=== PATIENT | female | born 1995 | race Caucasian/White ===

== ENCOUNTER 2020-07-17 08:31 | Emergency (ER) | payer OTHER ==
[2020-07-17 10:18] LABS: APPEARANCE,URINE CLEAR; BILIRUBIN,URINE NEGATIVE (NEGATIVE); COLOR,URINE YELLOW; GLUCOSE, URINE NEGATIVE (NEGATIVE); KETONES,URINE NEGATIVE (NEGATIVE); LEUKOCYTE ESTERASE,URINE MODERATE (NEGATIVE); NITRITE,URINE NEGATIVE (NEGATIVE); PROTEIN,URINE 30 mg/dL (NEGATIVE); URINE SPECIFIC GRAVITY 1.023; UROBILINOGEN,URINE NEGATIVE mg/dL (<2.0)
--- NOTE | 2020-07-17 10:20 | ER Document Report ---
HPI - HPI Patient complains to provider of: Urinary symptoms Time Seen by Provider: 07/17/20 10:11 Onset/Duration: Worse Pain Level: 1 Context: Patient presents with a 3-day history of dysuria and urinary frequency. Patient complains of possible hematuria. Patient states that she has not had any vaginal bleeding or discharge but feels as though something is trying to come out of her vagina. Associated Symptoms: denies: Fever, Nausea, Vomiting Exacerbated by: Denies Relieved by: Denies Similar symptoms previously: No Recently seen / treated by doctor: No - ROS ROS below otherwise negative: Yes Systems Reviewed and Negative: Yes All other systems reviewed and negative - CONSTITUTIONAL Constitutional: DENIES: Fever - GASTROINTESTINAL Gastrointestinal: REPORTS: Abdominal Pain - URINARY Urinary: REPORTS: Dysuria, Frequency - REPRODUCTIVE LMP: 07/04/20 Reproductive: DENIES: : - DERM Skin Color: Normal Skin Problems: None Past Medical History - General Information source: Patient - Social History Smoking Status: Never Smoker Chew tobacco use (# tins/day): No Frequency of alcohol use: None Drug Abuse: None Occupation: None Family History: Reviewed & Not Pertinent Patient has homicidal ideation: No Endocrine Medical History: Reports: Hx Hypothyroidism Surgical Hx: Negative - Immunizations Hx Diphtheria, Pertussis, Tetanus Vaccination: Yes Vertical Provider Document - CONSTITUTIONAL Agree With Documented VS: Yes Exam Limitations: No Limitations General Appearance: WD/WN, No Apparent Distress - HEENT HEENT: Atraumatic, Normocephalic - NECK Neck: Normal Inspection, Supple - RESPIRATORY Respiratory: Breath Sounds Normal, No Respiratory Distress - CARDIOVASCULAR Cardiovascular: Regular Rate, Regular Rhythm, No Murmur - GI/ABDOMEN Gastrointestinal: Abdomen Soft, Abdomen Non-Tender, No Organomegaly, Normal Bowel Sounds - REPRODUCTIVE Female Genitalia: Abnormal Inspection - Positive vaginal discharge - BACK Back: Normal Inspection. negative: CVA Tenderness-Right, CVA Tenderness-Left - MUSCULOSKELETAL/EXTREMETIES Musculoskeletal/Extremeties: ISAIAH ONEAL - NEURO Level of Consciousness: Awake, Alert, Appropriate Motor/Sensory: No Motor Deficit - DERM Integumentary: Warm, Dry, No Rash Course - Re-evaluation Re-evalutation: 07/17/20 Patient with findings worrisome for UTI, no concern for pylonephritis or obstructive uropathy at this time. Patient also with positive gonorrhea. Patient advised that partner will need to be treated. Patient nontoxic in appearance, will plan for discharge at this time. - Vital Signs Vital signs: Temp Pulse Resp BP Pulse Ox 98.3 F 71 16 131/81 H 100 07/17/20 08:35 07/17/20 08:35 07/17/20 08:35 07/17/20 08:35 07/17/20 08:35 - Laboratory Laboratory results interpreted by me: 07/17/20 18:42 Labs- All tests 24 hr 07/17/20 07/17/20 07/17/20 08:47 08:47 08:57 Urine Color YELLOW Urine Appearance CLEAR Urine pH 6.0 Ur Specific [place] 1.023 Urine Protein 30 H Urine Glucose (UA) NEGATIVE Urine Ketones NEGATIVE Urine Blood MODERATE H Urine Nitrite NEGATIVE Urine Bilirubin NEGATIVE Urine Urobilinogen NEGATIVE Ur Leukocyte Esterase MODERATE H Urine WBC (Auto) 47 Urine RBC (Auto) 91 Urine Bacteria (Auto) TRACE Squamous Epi Cells Auto 1 Urine Mucus (Auto) RARE Urine Ascorbic Acid NEGATIVE Urine HCG, Qual NEGATIVE Bacteria (Wet Prep) Trichomonas (Wet Prep) Vaginal WBC Vaginal RBC Vaginal Yeast Chlamydia DNA (PCR) NOT DETECTED N.gonorrhoeae DNA (PCR) DETECTED H 07/17/20 11:36 Urine Color Urine Appearance Urine pH Ur Specific [place] Urine Protein Urine Glucose (UA) Urine Ketones Urine Blood Urine Nitrite Urine Bilirubin Urine Urobilinogen Ur Leukocyte Esterase Urine WBC (Auto) Urine RBC (Auto) Urine Bacteria (Auto) Squamous Epi Cells Auto Urine Mucus (Auto) Urine Ascorbic Acid Urine HCG, Qual Bacteria (Wet Prep) 3+ BACTERIA SEEN Trichomonas (Wet Prep) NO TRICHOMONAS SEEN Vaginal WBC 4+ WBCS SEEN Vaginal RBC FEW RBCS SEEN Vaginal Yeast NO YEAST SEEN Chlamydia DNA (PCR) N.gonorrhoeae DNA (PCR) Discharge - Discharge Clinical Impression: Gonorrhea UTI (urinary tract infection) Qualifiers: Urinary tract infection type: site unspecified Hematuria presence: with hematuria Qualified Code(s): N39.0 - Urinary tract infection, site not specified Condition: Stable Disposition: HOME, SELF-CARE Instructions: Azithromycin ([facility]), Cephalexin ([facility]), Gonorrhea ([facility]), Rocephin ([facility]), Urinary Anesthetic Agent ([facility]), Urinary Tract Infection ([facility]) Additional Instructions: Return immediately for any new or worsening symptoms Followup with your primary care provider, call tomorrow to make a followup appointment Have your partner seek treatment for gonorrhea Prescriptions: Cephalexin Monohydrate [Keflex 500 mg Capsule] 500 mg PO BID 5 Days #10 capsule Phenazopyridine HCl [Pyridium 200 mg Tablet] 200 mg PO TID #15 tablet Referrals: [facility] [Provider Group] - Follow up as needed
[2020-07-17 10:54] LABS: CHLAM PCR NOT DETECTED (NOT DETECT)
[2020-07-17] MEDS ORDERED: AZITHROMYCIN 250 MG TABLET PO ONE (11:36)
[2020-07-17] MEDS ORDERED: CEFTRIAXONE INJ 1000 MG VIAL IM ONE (11:36)
[2020-07-17] MEDS ORDERED: LIDOCAINE 1% INJ (10 MG/ML) 10 ML MDV INJ ONE (11:36)
[2020-07-17 12:04] LABS: T.VAGINALIS (WET MOUNT) NO TRICHOMONAS SEEN; WBCS (WET MOUNT) 4+ WBCS SEEN; YEAST (WET MOUNT) NO YEAST SEEN
[2020-07-17 12:05] LABS: BACTERIA (WET MOUNT) 3+ BACTERIA SEEN; RBCS (WET MOUNT) FEW RBCS SEEN
[2020-07-17 13:05] VITALS: BP 120/60
== END 2020-07-17 12:55 | disposition home or self-care (01) ==
LOC: ER 08:31
DX: A54.9 Gonococcal infection, unspecified (principal); N39.0 Urinary tract infection, site not specified; R39.198 Other difficulties with micturition; R31.9 Hematuria, unspecified; R30.0 Dysuria; R35.0 Frequency of micturition
CPT/HCPCS: 99284; 96372; 87086; 87210; 81025; 81001; 87491; 87591; J0696

== ENCOUNTER 2020-08-08 16:16 | Emergency (ER) | payer OTHER ==
[2020-08-08] MEDS ORDERED: CEFTRIAXONE INJ 250 MG VIAL IM ONE (16:37)
[2020-08-08] MEDS ORDERED: LIDOCAINE 1% INJ-PF (10 MG/ML) 30 ML SDV INJ ONE (16:37)
[2020-08-08] MEDS ORDERED: AZITHROMYCIN 250 MG TABLET PO ONE (16:37)
--- NOTE | 2020-08-08 17:06 | ER Document Report ---
HPI - HPI Time Seen by Provider: 08/08/20 16:27 Pain Level: 3 Context: Patient is a 25-year-old female who presents emergency department with a chief complaint of vaginal itching exposure to chlamydia. Patient states that she was diagnosed with gonorrhea a few months back, but states that she was told yesterday that the person she had intercourse with had chlamydia. - ROS Systems Reviewed and Negative: Yes All other systems reviewed and negative - RESPIRATORY Respiratory: DENIES: Trouble Breathing, Coughing - GASTROINTESTINAL Gastrointestinal: DENIES: Abdominal Pain, Nausea, Patient vomiting - URINARY Urinary: DENIES: Dysuria, Urgency, Frequency - REPRODUCTIVE Reproductive: REPORTS: Abnormal bleeding / discharge - discharge/puritis. DENIES: : - DERM Skin Color: Normal Skin Problems: None Past Medical History - Social History Smoking Status: Never Smoker Chew tobacco use (# tins/day): No Frequency of alcohol use: None Drug Abuse: None Family History: Reviewed & Not Pertinent Patient has homicidal ideation: No Endocrine Medical History: Reports: Hx Hypothyroidism - Immunizations Hx Diphtheria, Pertussis, Tetanus Vaccination: Yes Vertical Provider Document - CONSTITUTIONAL Agree With Documented VS: Yes Exam Limitations: No Limitations General Appearance: No Apparent Distress - HEENT HEENT: Atraumatic, Normocephalic, PERRLA - NECK Neck: Normal Inspection - RESPIRATORY Respiratory: No Respiratory Distress - CARDIOVASCULAR Cardiovascular: Regular Rate, Regular Rhythm Pulses: Normal: Radial - GI/ABDOMEN Gastrointestinal: Abdomen Soft, Abdomen Non-Tender - REPRODUCTIVE Female Genitalia: Abnormal Inspection - white/yellow discharge. negative: CMT, Adnexal Pain-Right, Adnexal Pain-Left - MUSCULOSKELETAL/EXTREMETIES Musculoskeletal/Extremeties: FROM - NEURO Level of Consciousness: Awake, Alert, Appropriate Motor/Sensory: No Motor Deficit, No Sensory Deficit - DERM Integumentary: Warm, Dry, No Rash Course - Re-evaluation Re-evalutation: 08/08/20 17:06 Pelvic exam done with DALTON Brooke at bedside. Patient has white/yellow discharge noted. Wet mount and gonorrhea and Chlamydia sent. 08/08/20 19:23 Gonorrhea and Chlamydia tests were negative. We will give the patient Flagyl. Called the patient and let her know. - Vital Signs Vital signs: Temp Pulse Resp BP Pulse Ox 98.5 F 108 H 16 140/71 H 97 08/08/20 16:21 08/08/20 16:21 08/08/20 16:21 08/08/20 16:21 08/08/20 16:21 Discharge - Discharge Clinical Impression: STD exposure Condition: Stable Disposition: HOME, SELF-CARE Additional Instructions: You need to use protection every time you have sex. Failure to do so can result in transmission of infections or unintended . You have been treated for an sexually transmitted infection (STI) today. All of your partners should be tested and treated as they are also likely to be infected. Please return if you develop abdominal pain, fever, persistent vomiting, or any other symptoms that are concerning to you. If your gonorrhea and Chlamydia results are negative, you will be called and be sent with this prescription for Flagyl for bacterial vaginosis. Prescriptions: Metronidazole [Flagyl 500 mg Tablet] 500 mg PO Q6H #28 tablet
[2020-08-08 17:28] LABS: APPEARANCE,URINE CLEAR; BILIRUBIN,URINE NEGATIVE (NEGATIVE); COLOR,URINE YELLOW; GLUCOSE, URINE NEGATIVE (NEGATIVE); KETONES,URINE NEGATIVE (NEGATIVE); PROTEIN,URINE NEGATIVE (NEGATIVE); URINE SPECIFIC GRAVITY 1.017; UROBILINOGEN,URINE NEGATIVE mg/dL (<2.0)
[2020-08-08 19:04] LABS: CHLAM PCR NOT DETECTED (NOT DETECT)
[2020-08-08 19:09] VITALS: BP 131/69
[2020-08-09 12:06] LABS: T.VAGINALIS (WET MOUNT) NO TRICHOMONAS SEEN
[2020-08-09 12:07] LABS: BACTERIA (WET MOUNT) 3+ BACTERIA SEEN
[2020-08-09 12:08] LABS: RBCS (WET MOUNT) NO RBCS SEEN
[2020-08-09 12:09] LABS: YEAST (WET MOUNT) NO YEAST SEEN
[2020-08-09 12:10] LABS: WBCS (WET MOUNT) 2+ WBCS SEEN
== END 2020-08-08 18:41 | disposition home or self-care (01) ==
LOC: ER 16:16
DX: Z20.2 Contact with and (suspected) exposure to infections with a predominantly sexual mode of transmission (principal); N89.8 Other specified noninflammatory disorders of vagina; L29.9 Pruritus, unspecified; Z86.19 Personal history of other infectious and parasitic diseases
CPT/HCPCS: 99284; 96372; 87210; 81001; 87491; 87591; J3490; J0696

== ENCOUNTER 2020-11-07 16:10 | Emergency (ER) | payer OTHER ==
--- NOTE | 2020-11-07 17:06 | ER Document Report ---
HPI - HPI Time Seen by Provider: 11/07/20 16:59 Pain Level: 2 Notes: 25-year-old female presents to the emergency room today for evaluation after she left foreign body in her vaginal canal for 8 hours as well as having unprotected sex with a new partner 3 weeks ago. Reports foul smell from her vagina as well as dysuria frequency urgency with urination. Patient does have a history of having chlamydia and gonorrhea in the past has been treated. Last menstrual cycle 11/03/2020. Denies any chest pain, shortness of breath, nausea, vomiting, diarrhea, abdominal pain, lower back pain, numbness or tingling of bilateral upper or lower extremities. Denies any vaginal discharge. Patient states that her partner was tested for any STIs, she reports that is what he told her. - REPRODUCTIVE Reproductive: DENIES: : Past Medical History - General Information source: Patient Last Menstrual Period: 11/03 - Social History Smoking Status: Never Smoker Frequency of alcohol use: Occasional Family History: Reviewed & Not Pertinent Endocrine Medical History: Reports: Hx Hypothyroidism - Immunizations Hx Diphtheria, Pertussis, Tetanus Vaccination: Yes Vertical Provider Document - CONSTITUTIONAL Agree With Documented VS: Yes Exam Limitations: No Limitations General Appearance: WD/WN Notes: MEDICATIONS: I agree with the patient medications as charted by the RN. ALLERGIES: I agree with the allergies as charted by the RN. PAST MEDICAL HISTORY/PAST SURGICAL HISTORY: Reviewed and agree as charted by RN. SOCIAL HISTORY: Reviewed and agree as charted by RN. FAMILY HISTORY: No significant familial comorbid conditions directly related to patient complaint EXAM: Reviewed vital signs as charted by RN. PHYSICAL EXAMINATION: reviewed vital signs by RN GENERAL: Well-appearing, well-nourished and in no acute distress. HEAD: Atraumatic, normocephalic. EYES: Pupils equal round and reactive to light, extraocular movements intact, conjunctiva are normal. ENT: Nares patent, oropharynx clear without exudates. Moist mucous membranes. NECK: Normal range of motion, supple without lymphadenopathy LUNGS: Breath sounds clear to auscultation bilaterally and equal. No wheezes rales or rhonchi. HEART: Regular rate and rhythm without murmurs ABDOMEN: Soft, nontender, nondistended abdomen. No guarding, no rebound. No masses appreciated. Female : External genitalia without erythema, exudate or discharge. Vaginal vault is without discharge. Cervix is of normal color without lesion. Uterus is noted to be of normal size and nontender. No cervical motion tenderness is seen. No masses are palpated. Scant blood in the vaginal vault without clots, os closed, no adnexal tenderness or mass Musculoskeletal: Normal range of motion, no pitting or edema. No cyanosis. NEUROLOGICAL: Cranial nerves grossly intact. Normal speech, normal gait. Normal sensory, motor exams PSYCH: Normal mood, normal affect. SKIN: Warm, Dry, normal turgor, no rashes or lesions noted. Course - Re-evaluation Re-evalutation: 11/07/20 18:21 Afebrile vital stable no distress. Nurses notes reviewed. Patient is anxious at this time I think this is why her heart rates a little elevated, she is crying. Patient shows to have a slight UTI on urinalysis, will send for urine culture. Patient does show to have bacterial vaginosis on wet mount, yeast negative trichomoniasis anonymous negative. Will start patient on outpatient antibiotic therapy for BV and UTI per standard of care. patient treated with azithromycin 1 g and Rocephin 250 mg IM for treatment of chlamydia and g onorrhea. Do not engage in sexual intercourse for 7-10 days after treatment. Advised that partner needs to be treated as well so you are not reinfected. Pt verbalizes that understands the risks that come with having unprotected sex. discussed safe sex, using protection. pt was tx'd for G/C at this visit. advised to have protected sex always, go [facility] for further blood testing for HIV, hepatitis C, etc. Pt verbalized understanding of these instructions and agreed with plan of care. Patient 11/07/20 18:45 - Vital Signs Vital signs: Temp Pulse Resp BP Pulse Ox 98.4 F 111 H 20 150/78 H 99 11/07/20 16:29 11/07/20 16:29 11/07/20 16:29 11/07/20 16:29 11/07/20 16:29 - Laboratory Results Critical Laboratory Results Reviewed: No Critical Results - Radiology Results Critical Radiology Results Reviewed: No Critical Results Discharge - Discharge Clinical Impression: UTI (urinary tract infection), Bacterial vaginosis Condition: Stable Disposition: HOME, SELF-CARE Instructions: Urinary Tract Infection ([facility]), Vaginosis, Bacterial ([facility]) Additional Instructions: Your wet mount today showed that you are positive for bacterial vaginosis. Your urinalysis does show you have a slight UTI. Urine culture is pending. We will call you with your results but due to your exposure to possible STDs, you have been treated with azithromycin 1 g and Rocephin 250 mg IM for treatment of chlamydia and gonorrhea. Do not engage in sexual intercourse for 7-10 days after treatement. discussed safe sex, using protection. pt was tx'd for G/C at this visit. Advised to have protected sex always, go to [facility] for further blood testing for HIV, hepatitis C, etc. Prescriptions: Metronidazole [Flagyl] 500 mg PO BID #14 tablet Nitrofurantoin Monohyd/M-Cryst [Macrobid 100 mg Capsule] 100 mg PO BID #20 cap Referrals: CECILIA MENJIVAR MD [ACTIVE STAFF] - Follow up as needed JEROME LARIOS DO [NO LOCAL MD] - Follow up as needed
[2020-11-07 17:56] LABS: APPEARANCE,URINE CLEAR; BILIRUBIN,URINE NEGATIVE (NEGATIVE); COLOR,URINE STRAW; GLUCOSE, URINE NEGATIVE (NEGATIVE); KETONES,URINE NEGATIVE (NEGATIVE); LEUKOCYTE ESTERASE,URINE TRACE (NEGATIVE); NITRITE,URINE NEGATIVE (NEGATIVE); PROTEIN,URINE NEGATIVE (NEGATIVE); URINE SPECIFIC GRAVITY 1.011; UROBILINOGEN,URINE NEGATIVE mg/dL (<2.0)
[2020-11-07 18:38] LABS: EPITHELIALS (WET MOUNT) 3+ EPITHELIALS SEEN; RBCS (WET MOUNT) 1+ RBCS SEEN; T.VAGINALIS (WET MOUNT) NO TRICHOMONAS SEEN; WBCS (WET MOUNT) 1+ WBCS SEEN; YEAST (WET MOUNT) NO YEAST SEEN
[2020-11-07 18:39] LABS: BACTERIA (WET MOUNT) 3+ BACTERIA SEEN
[2020-11-07] MEDS ORDERED: LIDOCAINE 1% INJ-PF (10 MG/ML) 30 ML SDV INJ ONE (18:43)
[2020-11-07] MEDS ORDERED: CEFTRIAXONE INJ 250 MG VIAL IM ONE (18:43)
[2020-11-07] MEDS ORDERED: AZITHROMYCIN 1 GM SUSP PACKET PO ONE (18:43)
[2020-11-07 19:25] VITALS: BP 134/86
[2020-11-07 20:00] LABS: CHLAM PCR NOT DETECTED (NOT DETECT)
== END 2020-11-07 19:23 | disposition home or self-care (01) ==
LOC: ER 16:10
DX: N76.0 Acute vaginitis (principal); B96.89 Other specified bacterial agents as the cause of diseases classified elsewhere; N39.0 Urinary tract infection, site not specified; Z20.2 Contact with and (suspected) exposure to infections with a predominantly sexual mode of transmission
CPT/HCPCS: 99284; 96372; 36415; 87086; 87210; 84702; 81001; 87491; 87591; J3490; Q0144; J0696